=== PATIENT | male | born 1980 | race African-American/Black ===

== ENCOUNTER 2018-02-11 10:15 | Outpatient (CLI) | payer OTHER ==
--- NOTE | 2018-02-11 12:20 | Diagnostic Imaging Report ---
Indications: Palpable mass left testicle Technique: Grayscale and duplex images of the scrotum Comparison: none Findings:The right testicle measures 4.1cm in length. It demonstrates normal echogenicity. Normal Doppler flow. Normal epididymis. The left testicle measures 4 cm in length. It demonstrates normal echogenicity and normal Doppler flow. A 4 mm cyst is seen in the epididymal head. 10 x 8 mm hypoechoic structure is seen in the lateral epididymal head. There is a small left hydrocele, which contains some debris. Impression: 10 x 8 mm hypoechoic structure in the left epididymal head; relationship to L1 abnormality uncertain. This may represent a debris-filled cyst or a solid lesion; if the latter, most likely benign. Nonetheless, short interval follow-up sonographic surveillance is recommended Small cyst in the left epididymal head, most likely a spermatocele Small left hydrocele with debris Normal right hemiscrotum and left testicle
== END 2018-02-11 12:15 | disposition home or self-care (01) ==
LOC: ULS 10:15
DX: N50.3 Cyst of epididymis (principal); N43.3 Hydrocele, unspecified
CPT/HCPCS: 76870

== ENCOUNTER → 2018-03-20 | Outpatient (CLI) | payer OTHER ==
--- NOTE | 2018-03-20 12:07 | Diagnostic Imaging Report ---
Indications: Scrotal mass Technique: Grayscale and duplex images of the scrotum Comparison: none Findings:The right testicle measures 4.2cm in length. It demonstrates normal echogenicity. Normal Doppler flow. 5 mm cyst is seen in the epididymal head. There is a small right hydrocele with debris and a small right varicocele. The left testicle measures 4 cm in length. It demonstrates normal echogenicity and normal Doppler flow. 6 mm cyst is seen in the epididymal head. There is a small hydrocele with debris. There is a small varicocele. Impression: No acute abnormality Bilateral cysts in the epididymal heads, spermatoceles versus epididymal cysts Bilateral small hydroceles with debris Bilateral small varicoceles
== END | disposition home or self-care (01) ==
LOC: ULS 10:16
DX: N50.9 Disorder of male genital organs, unspecified (principal); N44.2 Benign cyst of testis; N43.3 Hydrocele, unspecified; I86.1 Scrotal varices
CPT/HCPCS: 76870